=== PATIENT | male | born 1990 | race African-American/Black ===

== ENCOUNTER 2024-02-11 04:56 | Inpatient (IN) | payer OTHER ==
[~2024-02-11] VITALS: Ht 167.6 cm; Wt 90.0 kg
[2024-02-11] MEDS ORDERED: FLUO-418 PO (05:17)
[2024-02-11] MEDS ORDERED: AMLO-258 PO (05:17)
[2024-02-11] MEDS ORDERED: HALO100V36 IM (05:17)
[2024-02-11] MEDS ORDERED: LAMO-24 PO (05:17)
[2024-02-11 05:28] LABS: BASOPHILS % (AUTO) 0.7 % (0.0-2.0); EOSINOPHILS % (AUTO) 2.2 % (1.0-6.0); HEMOGLOBIN 13.3 g/dL (13.5-17.5); LYMPHOCYTES # (AUTO) 2.1 K/uL (1.0-4.8); LYMPHOCYTES % (AUTO) 32.8 % (22.0-44.0); MEAN CORPUSCULAR HGB CONC 31.6 G/dL (31.0-37.0); MEAN CORPUSCULAR VOLUME 85 fL (80-100); MONOCYTES # (AUTO) 0.7 K/uL (0.1-1.0); MONOCYTES % (AUTO) 11.2 % (2.0-9.0); NEUTROPHILS # (AUTO) 3.4 K/uL (1.8-7.7); NEUTROPHILS % (AUTO) 53.1 % (40.0-70.0); PLATELET COUNT (AUTO) 123 K/uL (150-450); RED BLOOD CELL COUNT(AUTO) 4.92 MIL/uL (4.50-5.90); RED CELL DISTRIBUTION WIDTH 14.7 % (11.5-14.5); WHITE BLOOD COUNT (AUTO) 6.4 K/uL (4.5-11.0)
[2024-02-11 05:54] LABS: ANION GAP 3 mmol/L (8-16); CALCIUM, TOTAL 8.7 mg/dL (8.8-10.5); CARBON DIOXIDE 33 mmol/L (22-29); CHLORIDE 106 mmol/L (98-107); CREATININE 1.04 mg/dL (0.60-1.30); GLOMERULAR FILTR. RATE CALC > 60 mL/min (>60); GLUCOSE,RANDOM 81 mg/dL (70-110); POTASSIUM 3.6 mmol/L (3.5-5.1); SODIUM SERUM 142 mmol/L (136-145); UREA NITROGEN, BLOOD 10 mg/dL (7-18)
[2024-02-11] MEDS ORDERED: MIDAZOLAM HCL 2 MG/2 ML VIAL ONE (06:30)
[2024-02-11] MEDS ORDERED: SUCCINYLCHOLINE CHLORIDE 20 MG/ML 10 ML VIAL ONE (06:30)
[2024-02-11] MEDS ORDERED: PROPOFOL 1% 20 ML VIAL IVP ONE (06:30)
[2024-02-11] MEDS ORDERED: LIDOCAINE/PF 2% 5 ML VIAL ONE (06:30)
[2024-02-11] MEDS ORDERED: FentaNYL CITRATE PF 100 MCG/2 ML VIAL ONE (06:30)
[2024-02-11] MEDS ORDERED: DEXAMETHASONE SOD PHOS 4 MG/ML VIAL ONE (06:30)
[2024-02-11] MEDS ORDERED: ONDANSETRON HCL 4 MG/2 ML VIAL ONE (06:30)
[2024-02-11] MEDS ORDERED: ACETAMINOPHEN 325 MG TABLET PO PRN (07:30)
[2024-02-11] MEDS ORDERED: ONDANSETRON HCL 4 MG/2 ML VIAL IVP PRN (07:30)
[2024-02-11] MEDS: DOCUSATE SODIUM 100 MG CAPSULE PO SCH (09:00)
[2024-02-11] MEDS: PANTOPRAZOLE SODIUM 40 MG/VIAL IVP SCH (09:19)
[2024-02-11 12:13] VITALS: BP 103/65; PULSE 74; RESP 18; TEMP 98.1
[2024-02-11 20:19] VITALS: BP 99/64; PULSE 61; RESP 20; TEMP 97.4
[2024-02-12 05:20] VITALS: BP 109/57; PULSE 63; RESP 20; TEMP 97.7
[2024-02-12] MEDS: LamoTRIgine 25 MG TABLET PO SCH (11:00)
[2024-02-12] MEDS: FLUoxetine HCL 20 MG CAPSULE PO SCH (11:00)
[2024-02-12] MEDS: SODIUM CHLORIDE 0.9% 500 ML IV ONE (12:01)
[2024-02-12] MEDS: LamoTRIgine 100 MG TABLET PO SCH (21:00)
== END 2024-02-13 02:21 | disposition left against medical advice (07) | DRG 394 ==
LOC: EMS 04:58 → EDH 08:07 → 6N 11:45
PROVIDERS: ADMIT Internal Medicine; ATTEND Internal Medicine
PROC: 0DC68ZZ Extirpation of Matter from Stomach, Via Natural or Artificial Opening Endoscopic (ICD-10-PCS; principal; 2024-02-11 10:20)
DX: T18.2XXA Foreign body in stomach, initial encounter (principal); R45.851 Suicidal ideations; I10 Essential (primary) hypertension; K21.9 Gastro-esophageal reflux disease without esophagitis; F25.1 Schizoaffective disorder, depressive type; E03.9 Hypothyroidism, unspecified; W44.8XXA Other foreign body entering into or through a natural orifice, initial encounter; F64.0 Transsexualism; E78.00 Pure hypercholesterolemia, unspecified; Z53.21 Procedure and treatment not carried out due to patient leaving prior to being seen by health care provider; Z88.8 Allergy status to other drugs, medicaments and biological substances; Z79.899 Other long term (current) drug therapy; Y92.89 Other specified places as the place of occurrence of the external cause; Y93.89 Activity, other specified; Y99.8 Other external cause status
CPT/HCPCS: 74022; 74176; 80048; 84443; 85025; 88300; 99285; C9113; J0330; J1100; J2250; J2405; J2704; J3010; J3490; J7040

== ENCOUNTER 2024-03-04 16:16 | Inpatient (IN) | payer OTHER ==
[~2024-03-04] VITALS: Ht 167.6 cm; Wt 80.0 kg
[~2024-03-04 16:16] MED LIST: AMLO-258 PO; FLUO-418 PO; HALO100V36 IM; LAMO-24 PO
[2024-03-04 16:51] LABS: BASOPHILS % (AUTO) 0.3 % (0.0-2.0); HEMATOCRIT 41.1 % (41-53); HEMOGLOBIN 13.2 g/dL (13.5-17.5); LYMPHOCYTES # (AUTO) 1.2 K/uL (1.0-4.8); MEAN CORPUSCULAR HEMOGLOBIN 26.9 pg (26.0-34.0); MEAN CORPUSCULAR HGB CONC 32.2 G/dL (31.0-37.0); MEAN CORPUSCULAR VOLUME 84 fL (80-100); MONOCYTES # (AUTO) 0.4 K/uL (0.1-1.0); MONOCYTES % (AUTO) 6.7 % (2.0-9.0); NEUTROPHILS # (AUTO) 3.8 K/uL (1.8-7.7); PLATELET COUNT (AUTO) 115 K/uL (150-450); RED BLOOD CELL COUNT(AUTO) 4.92 MIL/uL (4.50-5.90); RED CELL DISTRIBUTION WIDTH 14.5 % (11.5-14.5); WHITE BLOOD COUNT (AUTO) 5.5 K/uL (4.5-11.0)
[2024-03-04 17:00] LABS: ANION GAP 6 mmol/L (8-16); CARBON DIOXIDE 31 mmol/L (22-29); CHLORIDE 104 mmol/L (98-107); CREATININE 1.05 mg/dL (0.60-1.30); GLOMERULAR FILTR. RATE CALC > 60 mL/min (>60); GLUCOSE,RANDOM 92 mg/dL (70-110); POTASSIUM 3.7 mmol/L (3.5-5.1); SODIUM SERUM 141 mmol/L (136-145); UREA NITROGEN, BLOOD 11 mg/dL (7-18)
[2024-03-04] MEDS: FentaNYL CITRATE PF 100 MCG/2 ML VIAL IVP ONE (17:04)
[2024-03-04 17:06] LABS: ALANINE AMINOTRANSFERASE 28 U/L (12-78); ALBUMIN 4.1 g/dL (3.4-5.0); ALKALINE PHOSPHATASE 78 U/L (46-116); ASPARTATE AMINOTRANSFERASE 23 U/L (15-37); BILIRUBIN,TOTAL 0.3 mg/dL (0.1-1.0); LIPASE 65 U/L (16-77); TOTAL PROTEIN, SERUM 7.5 g/dL (6.4-8.2)
[2024-03-04] MEDS: DiphenhydrAMINE HCL 50 MG/ML VIAL IM ONE (18:31)
[2024-03-04] MEDS: HALOPERIDOL LACTATE 5 MG/ML VIAL IM ONE (18:32)
[2024-03-04] MEDS: LORazepam 2 MG/ML VIAL IM ONE (18:32)
[2024-03-04] MEDS: RINGERS SOLUTION,LACTATED 1,000 ML IV SCH (19:00)
[2024-03-04] MEDS ORDERED: ACETAMINOPHEN 325 MG TABLET PO PRN (19:00)
[2024-03-04 21:48] VITALS: BP 108/63; PULSE 63; RESP 19; TEMP 98.4
[2024-03-05 04:11] VITALS: BP 106/60; PULSE 69; RESP 19; TEMP 98
[2024-03-05 06:13] LABS: BASOPHILS % (AUTO) 0.7 % (0.0-2.0); HEMOGLOBIN 13.4 g/dL (13.5-17.5); LYMPHOCYTES # (AUTO) 1.3 K/uL (1.0-4.8); MEAN CORPUSCULAR VOLUME 84 fL (80-100); MONOCYTES # (AUTO) 0.5 K/uL (0.1-1.0); MONOCYTES % (AUTO) 10.8 % (2.0-9.0); NEUTROPHILS # (AUTO) 2.7 K/uL (1.8-7.7); NEUTROPHILS % (AUTO) 57.5 % (40.0-70.0); PLATELET COUNT (AUTO) 111 K/uL (150-450); RED BLOOD CELL COUNT(AUTO) 4.98 MIL/uL (4.50-5.90); RED CELL DISTRIBUTION WIDTH 14.5 % (11.5-14.5); WHITE BLOOD COUNT (AUTO) 4.7 K/uL (4.5-11.0)
[2024-03-05 06:27] LABS: ANION GAP 6 mmol/L (8-16); CALCIUM, TOTAL 8.7 mg/dL (8.8-10.5); CARBON DIOXIDE 30 mmol/L (22-29); CHLORIDE 107 mmol/L (98-107); CREATININE 1.06 mg/dL (0.60-1.30); GLOMERULAR FILTR. RATE CALC > 60 mL/min (>60); GLUCOSE,RANDOM 78 mg/dL (70-110); POTASSIUM 3.7 mmol/L (3.5-5.1); SODIUM SERUM 143 mmol/L (136-145); UREA NITROGEN, BLOOD 8 mg/dL (7-18)
[2024-03-05 08:10] VITALS: BP 107/62; PULSE 67; RESP 19; TEMP 98.5
[2024-03-05 19:49] VITALS: BP 118/66; PULSE 81; RESP 20; TEMP 98.2
[2024-03-05] MEDS: KETOROLAC TROMETHAMINE 15 MG/ML VIAL IM ONE (21:27)
[2024-03-06] MEDS: HEPARIN SODIUM,PORCINE 5,000 UNITS/ML VIAL SQ SCH
[2024-03-06 04:18] VITALS: BP 109/59; PULSE 70; RESP 18; TEMP 98.4
[2024-03-06 07:00] LABS: APPEARANCE,URINE CLEAR (CLEAR); BILIRUBIN,URINE NEGATIVE (NEGATIVE); COLOR,URINE YELLOW (YELLOW); GLUCOSE, URINE (UA) NEGATIVE (NEGATIVE); KETONES,URINE 80-100 mg/dL (NEGATIVE); LEUKOCYTE ESTERASE ,URINE NEGATIVE (NEGATIVE); NITRATE,URINE NEGATIVE (NEGATIVE); OCCULT BLOOD,URINE NEGATIVE (NEGATIVE); PROTEIN,URINE TRACE mg/dL (NEGATIVE); SPECIFIC GRAVITIY, URINE 1.031 (1.003-1.030); UROBILINOGEN,URINE <=1.0 mg/dL (<=1.0)
[2024-03-06 07:07] LABS: ALCOHOL, URINE DRUG SCREEN NEGATIVE (NEGATIVE); AMPHET/METH SCREEN,URINE NEGATIVE (NEGATIVE); BARBITURATE SCREEN, URINE NEGATIVE (NEGATIVE); BENZODIAZEPINES SCREEN,URINE NEGATIVE (NEGATIVE); CANNABINOID SCREEN,URINE NEGATIVE (NEGATIVE); COCAINE SCREEN,URINE NEGATIVE (NEGATIVE); METHADONE SCREEN, URINE NEGATIVE (NEGATIVE); OPIATE SCREEN,URINE NEGATIVE (NEGATIVE); PHENCYCLIDINE SCREEN,URINE NEGATIVE (NEGATIVE)
[2024-03-06 08:05] VITALS: BP 119/65; PULSE 71; RESP 18; TEMP 97.6
[2024-03-06] MEDS: 1: MAGNESIUM SULFATE 2 GM, MVI, ADULT NO.1 WITH VIT K 10 ML, THIAMINE 100 MG, FOLIC ACID IV SCH (18:26)
[2024-03-06] MEDS: MAGNESIUM CITRATE [LEMON] 300 ML ORAL SOLUTION PO ONE (18:57)
[2024-03-06 19:41] VITALS: BP 130/70; PULSE 96; RESP 19; TEMP 97.6
[2024-03-06] MEDS: POLYETHYLENE GLYCOL 3350 17 GM PACKET PO SCH (20:52)
[2024-03-07 04:53] VITALS: BP 104/65; PULSE 65; RESP 18; TEMP 97.5
[2024-03-07 07:01] LABS: ANION GAP 4 mmol/L (8-16); CALCIUM, TOTAL 8.1 mg/dL (8.8-10.5); CARBON DIOXIDE 30 mmol/L (22-29); CHLORIDE 106 mmol/L (98-107); CREATININE 1.09 mg/dL (0.60-1.30); GLOMERULAR FILTR. RATE CALC > 60 mL/min (>60); GLUCOSE,RANDOM 80 mg/dL (70-110); POTASSIUM 4.3 mmol/L (3.5-5.1); SODIUM SERUM 140 mmol/L (136-145); UREA NITROGEN, BLOOD 5 mg/dL (7-18)
[2024-03-07 07:06] LABS: BASOPHILS % (AUTO) 0.5 % (0.0-2.0); EOSINOPHILS % (AUTO) 2.9 % (1.0-6.0); HEMATOCRIT 41.6 % (41-53); HEMOGLOBIN 13.5 g/dL (13.5-17.5); LYMPHOCYTES # (AUTO) 1.5 K/uL (1.0-4.8); MEAN CORPUSCULAR HEMOGLOBIN 27.4 pg (26.0-34.0); MEAN CORPUSCULAR HGB CONC 32.5 G/dL (31.0-37.0); MEAN CORPUSCULAR VOLUME 84 fL (80-100); MONOCYTES # (AUTO) 0.5 K/uL (0.1-1.0); MONOCYTES % (AUTO) 11.6 % (2.0-9.0); NEUTROPHILS # (AUTO) 2.5 K/uL (1.8-7.7); PLATELET COUNT (AUTO) 127 K/uL (150-450); RED BLOOD CELL COUNT(AUTO) 4.94 MIL/uL (4.50-5.90); RED CELL DISTRIBUTION WIDTH 13.6 % (11.5-14.5); WHITE BLOOD COUNT (AUTO) 4.6 K/uL (4.5-11.0)
[2024-03-07 08:19] VITALS: BP 111/58; PULSE 76; RESP 20; TEMP 98.4
[2024-03-07 19:55] VITALS: BP 127/68; PULSE 78; RESP 18; TEMP 98.1
[2024-03-08 04:48] VITALS: BP 103/71; PULSE 69; RESP 18; TEMP 98
[2024-03-08 08:21] VITALS: BP 115/62; PULSE 63; RESP 18; TEMP 98.2
[2024-03-08 20:05] VITALS: BP 117/71; PULSE 87; RESP 20; TEMP 98.4
== END 2024-03-09 01:57 | disposition left against medical advice (07) | DRG 393 ==
LOC: EMS 16:16 → EDH 19:01 → 6S 21:35
PROVIDERS: ADMIT Internal Medicine; ATTEND Internal Medicine
PROC: GZ52ZZZ Individual Psychotherapy, Cognitive (ICD-10-PCS; principal; 2024-03-05)
DX: T18.8XXA Foreign body in other parts of alimentary tract, initial encounter (principal); G92.8 Other toxic encephalopathy; E87.3 Alkalosis; F33.2 Major depressive disorder, recurrent severe without psychotic features; R45.851 Suicidal ideations; R45.850 Homicidal ideations; E03.9 Hypothyroidism, unspecified; K21.9 Gastro-esophageal reflux disease without esophagitis; F64.0 Transsexualism; E78.00 Pure hypercholesterolemia, unspecified; I10 Essential (primary) hypertension; T50.995A Adverse effect of other drugs, medicaments and biological substances, initial encounter; W44.A9XA Other batteries entering into or through a natural orifice, initial encounter; W44.H0XA Other sharp object unspecified, entering into or through a natural orifice, initial encounter; Z53.29 Procedure and treatment not carried out because of patient's decision for other reasons; Z91.51 Personal history of suicidal behavior; Z91.199 Patient's noncompliance with other medical treatment and regimen due to unspecified reason; Z88.8 Allergy status to other drugs, medicaments and biological substances; Y93.89 Activity, other specified; Y92.89 Other specified places as the place of occurrence of the external cause; Y99.8 Other external cause status; Z91.148 Patient's other noncompliance with medication regimen for other reason
CPT/HCPCS: 74019; 74022; 74176; 80048; 80053; 80307; 81003; 83690; 83735; 85025; 99285; J1200; J1630; J1644; J1885; J2060; J3411; J3475; J3490; J7030; J7120